=== PATIENT | female | born 1980 | race Caucasian/White ===

== ENCOUNTER → 2020-04-18 15:35 | Outpatient (BNVA) | payer OTHER, SELFPAY | PROVIDERS: Family Provider Family Medicine; PCP Family Medicine; Referring Provider Family Medicine; Visit Provider Specialist | DX: G56.03 Carpal tunnel syndrome, bilateral upper limbs (principal) | CPT/HCPCS: 95910 ==

== ENCOUNTER → 2020-06-21 08:31 | Outpatient (BNVA) | payer OTHER, SELFPAY | PROVIDERS: PCP Family Medicine; Referring Provider Family Medicine; Visit Provider Specialist | DX: G56.03 Carpal tunnel syndrome, bilateral upper limbs (principal) | CPT/HCPCS: 73130 ==

== ENCOUNTER → 2020-06-28 15:47 | Outpatient (BNVA) | payer OTHER, SELFPAY | PROVIDERS: PCP Family Medicine; Visit Provider Specialist | DX: G56.01 Carpal tunnel syndrome, right upper limb (principal); Z20.828 Contact with and (suspected) exposure to other viral communicable diseases | CPT/HCPCS: 87635 ==

== ENCOUNTER 2020-07-04 05:45 | Day surgery (SDC) | payer OTHER, SELFPAY ==
[2020-07-03 12:32] VITALS: BMI 32.8
[2020-07-04 06:03] VITALS: BP 122/74; PULSE 80; RESP 16; TEMP 36.3; O2SAT 99
--- NOTE | 2020-07-04 06:16 | ANES.PREANE2 ---
Pre-Anesthetic Assessment Pre-Anesthetic Assessment: Height/Weight: Height 1.6 m Weight 83.915 kg Temp Pulse Resp BP Pulse Ox 97.4 F L 80 16 122/74 99 07/04/20 06:03 07/04/20 06:03 07/04/20 06:03 07/04/20 06:03 07/04/20 06:03 Preop Diagnosis: Right carpal tunnel syndrome Proposed Procedure: Operation Date: 07/04/20 07:10 Proposed Procedures p right Carpal Tunnel Release 91426 g56.00(Right) - Mary Lyons MD Last intake: Intake Last Liquid Date 07/03/20 Last Liquid Time 21:00 Last Solid Date 07/03/20 Last Solid Time 21:00 Social: Social History: No alcohol and No tobacco Exam: Pre-Anes Outpt Exam: alert, oriented x 3, clear to auscultation bilaterally and regular rate & rhythm Airway: Submandibular: WNL Cervical ROM: WNL MP: 1 Additional comments: teeth ok History/ROS: No significant history except as noted Pulmonary: Pulmonary: Asthma (mild) CV/HEM: CV/HEM: None reported : : None reported Hepatic: Hepatic: None reported GI: GI: None reported Metabolic: Metabolic: None reported Musc/skel: Musc/skel: None reported Neuropsych: Neuropsych: Anxiety and Neuropathy (bilat wrist) Anesthetic Plan: ASA status: 2 Anesthesia: Anesthesia Evaluation, MAC and Regional (specify below) Other: Venu mak Risk of > 500 ml blood loss (7ml/kg in children): No Data Anesthesia Cardiac Studies: Holter Monitor 04/26/20
[2020-07-04] MEDS: CELEcoxib 200 mg Capsule 400 MG PO (06:22)
[2020-07-04] MEDS: sodium chloride 0.9% 1,000 ML 30 ML IV (06:22)
--- NOTE | 2020-07-04 06:56 | P.HPUD_ITS ---
Surgery/Procedure H&P Update DATE OF PROCEDURE: July 04, 2020 DATE H&P PERFORMED: 06/21/20 H&P UPDATE INFORMATION: I have reviewed H&P completed within last 30 days, I have examined patient prior to procedure, No changes to prior documentation and H&P is in [facility] [place] on date indicated PREOP DIAGNOSIS: Right carpal tunnel syndrome PLANNED PROCEDURE: Operation Date: 07/04/20 07:10 Proposed Procedures p right Carpal Tunnel Release 60717 g56.00(Right) - Mary Lyons MD Related Problem List Diagnoses (1) Carpal tunnel syndrome on right:
[2020-07-04 08:02] VITALS: BP 147/74; PULSE 77; RESP 16; TEMP 36.1; O2SAT 100
[2020-07-04 08:21] VITALS: BP 111/78; PULSE 71; RESP 16; O2SAT 100
--- NOTE | 2020-07-04 08:22 | PM.OP ---
Operative Report Date of procedure: July 04, 2020 Pre-op Diagnosis: Right carpal tunnel syndrome Post-op diagnosis: same Post-op Findings: Encroachment upon the carpal canal Procedure Done: Right carpal tunnel release Specimens removed/disposition: None Pathology: none sent Surgeon: Mary Lyons Personal Lines Appraiser: None Anesthesia: MAC (With [place] block, ASA 2) Estimated blood loss (mL): 5 Tourniquet time (min): 35 Tourniquet time: At 250 mmHg IV fluids (mL): 500 Urine output (mL): 0 Urine output: No Petit Complications: None Findings: Thickening of the transverse carpal ligament with tightness across the carpal canal Condition: stable Disposition: same day Brief History: This 40-year-old woman presented with complaints consistent with carpal tunnel syndrome. She wished to proceed with operative release after nonoperative treatments were not successful for her. Risks and complications were discussed. The patient agreed to the surgical procedure. Questions were answered. Procedure: The patient was brought to the operating theater. The patient had a [place] block with MAC, ASA 2. The tourniquet was elevated to 250 mmHg for a total tourniquet time of 35 minutes. The patient was also given Ancef 2 g preoperatively. The arm was then prepped and draped with DuraPrep in usual fashion with the arm draped free. A surgical pause was performed. At the time, the surgical pause, we confirmed the site and side of surgery. We also confirmed the patient's identity, appropriate and timely administration of preoperative antibiotics and preoperative surgical markings. An incision was then made along the thenar crease. The incision crossed the wrist joint in a curvilinear fashion. Dissection continued through skin and soft tissues using a scalpel. The palmaris longus was identified along with the transverse carpal ligament. Each of these was released carefully to avoid injury to the median nerve. We were able to dissect gently into the carpal canal which was noted to be quite tight with significant compression across the median nerve. The nerve was visualized and was an hourglass shape. The canal was subsequently palpated to assure there was no bony encroachment upon the canal. There was a quite thickened fibrous tissue within the canal, and this was opened longitudinally as well. The canal was then palpated distally and proximally to assure that my small finger was passed easily without impingement. Finding this to be so, attention was directed to closure. The wound was irrigated with ropivacaine plain. It was then closed with 4-0 nylon in an interrupted mattress fashion. Sterile dressing was then placed consisting of Xeroform gauze, fluffed fluffs, sterile soft roll, a volar splint, and an Shekhar wrap. The tourniquet was released after 35 minutes. There were no complications. There were no specimens. The procedure was well tolerated. Plan is the patient will be discharged home. Associated Problem List Diagnoses (1) Carpal tunnel syndrome on right:
== END 2020-07-04 08:39 | disposition home or self-care (01) ==
PROVIDERS: PCP Family Medicine; Visit Provider Specialist
PROC: (CPT 64721; principal; 2020-07-04 07:00)
DX: G56.01 Carpal tunnel syndrome, right upper limb (principal); J45.909 Unspecified asthma, uncomplicated
CPT/HCPCS: 64721; 12345; J0131; J0690; J3010; J3490; J7030

== ENCOUNTER 2024-01-26 14:07 | Outpatient (CLI) | payer OTHER, SELFPAY ==
--- NOTE | 2024-01-26 14:20 | XRR_ITS ---
PROCEDURE INFORMATION: Exam: XR Chest Exam date and time: 01/26/2024 2:59 PM Age: 43 years old Clinical indication: Cough and shortness of breath; Patient HX: --sob, cough, upper respiratory infection 2 weeks ago, did round of antibiotics and hasn't gotten better TECHNIQUE: Imaging protocol: Radiologic exam of the chest. Views: 2 views. COMPARISON: No relevant prior studies available. FINDINGS: Lungs: Peribronchial wall thickening. No consolidation. Pleural spaces: Unremarkable. No pleural effusion. No pneumothorax. Heart/Mediastinum: Unremarkable. No cardiomegaly. Bones/joints: Unremarkable. XR/XR chest 2V* [id number] IMPRESSION: Findings consistent with bronchitis.
== END 2024-01-26 14:08 | disposition home or self-care (01) ==
LOC: RAD 14:10
PROVIDERS: PCP Family Medicine; Visit Provider Family Medicine
DX: R06.00 Dyspnea, unspecified (principal); R05.9 Cough, unspecified; R91.8 Other nonspecific abnormal finding of lung field; Z87.09 Personal history of other diseases of the respiratory system
CPT/HCPCS: 71046

== ENCOUNTER → 2024-01-28 08:19 | Outpatient (BNVA) | payer OTHER, SELFPAY | PROVIDERS: PCP Family Medicine; Visit Provider Family Medicine | DX: E11.9 Type 2 diabetes mellitus without complications (principal); Z00.00 Encounter for general adult medical examination without abnormal findings; R06.00 Dyspnea, unspecified; F41.9 Anxiety disorder, unspecified | CPT/HCPCS: 80053; 80061; 84443; 85025 ==

== ENCOUNTER → 2024-02-02 11:45 | Outpatient (BNVA) | payer OTHER, SELFPAY | PROVIDERS: PCP Family Medicine; Visit Provider Nurse Practitioner Women's Health | DX: Z12.4 Encounter for screening for malignant neoplasm of cervix (principal) | CPT/HCPCS: 87624 ==

== ENCOUNTER 2024-02-05 08:30 | Outpatient (CLI) | payer OTHER, SELFPAY ==
--- NOTE | 2024-02-05 08:30 | MM_ITS ---
WS: [id number] BILATERAL SCREENING DIGITAL TOMOSYNTHESIS MAMMOGRAM WITH CAD HISTORY: screening COMPARISON: None available. Bilateral CC and MLO views with tomosynthesis and synthetic mammography submitted. Computer aided det ection analyzed. Breast composition: The breasts are heterogeneously dense, which may obscure small masses. No suspici ous masses, microcalcifications or architectural distortion. MM/[place] [id number] IMPRESSION: BI-RADS: 2-Benign FOLLOW UP: 1 Year Follow-up
== END 2024-02-05 08:31 | disposition home or self-care (01) ==
PROVIDERS: PCP Family Medicine; Visit Provider Family Medicine
DX: Z12.31 Encounter for screening mammogram for malignant neoplasm of breast (principal); R92.333 Mammographic heterogeneous density, bilateral breasts
CPT/HCPCS: 77063; 77067

== ENCOUNTER → 2024-05-21 15:45 | Outpatient (BNVA) | payer OTHER, SELFPAY | PROVIDERS: PCP Family Medicine; Visit Provider Nurse Practitioner Family | DX: R30.0 Dysuria (principal); N39.0 Urinary tract infection, site not specified | CPT/HCPCS: 81003; 87077; 87086; 87186 ==

== ENCOUNTER 2025-02-11 08:06 | Outpatient (CLI) | payer OTHER, SELFPAY ==
--- NOTE | 2025-02-11 08:20 | MM_ITS ---
WS: [id number] BILATERAL SCREENING DIGITAL TOMOSYNTHESIS MAMMOGRAM WITH CAD HISTORY: screening COMPARISON: 02/05/2024 Bilateral CC and MLO views with tomosynthesis and synthetic mammography submitted. Computer aided detection analyzed. Breast composition: The breasts are heterogeneously dense, which may obscure small masses. No suspicious masses, microcalcifications or architectural distortion. Benign calcifications LEFT breast. MM/MM scr BI tomosynthesis [id number] IMPRESSION: BI-RADS: 2 - Benign FOLLOW UP: 1 Year Follow-up
== END 2025-02-11 08:07 | disposition home or self-care (01) ==
LOC: RAD 08:06
PROVIDERS: PCP Family Medicine; Visit Provider Family Medicine
DX: Z12.31 Encounter for screening mammogram for malignant neoplasm of breast (principal); R92.333 Mammographic heterogeneous density, bilateral breasts; R92.1 Mammographic calcification found on diagnostic imaging of breast
CPT/HCPCS: 77063; 77067